=== PATIENT | male | born 1955 | race Caucasian/White ===

== ENCOUNTER 2018-08-04 19:48 | Inpatient (IN) | payer MEDICARE, OTHER ==
[~2018-08-04] VITALS: Ht 180.3 cm; Wt 149.5 kg
[~2018-08-04 19:48] MED LIST: ALLOPURINOL100 MG PO; ALLOPURINOL300 MG PO; ATENOLOL100 MG PO; DESOXIMETASONE15 G3 TOP; DIOVAN HCT 3201 EACH PO; DIOVAN320 MG PO; FLUOROURACIL40 GM TOP; LYRICA100 MG PO; RYBIX ODT50 MG PO; TORSEMIDE10 MG PO; TRILIPIX135 MG PO; ZESTRIL10 MG PO
--- OUTSIDE RECORDS SUMMARY | 2018-08-04 19:51 | XMS REPORT ---
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
--- OUTSIDE RECORDS SUMMARY | 2018-08-04 19:51 | XMS REPORT ---
Author Author Los Baig [facility] eClinical[employer] Address Unknown Phone Unavailable Care Team Providers Care Creative Consultant Name Role Phone Los Baig Unavailable Allergies, Adverse Reactions, Alerts Substance Reaction Event Type N.K.D.A. 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 Medications Medication Code System Code Instructions Start Date End Date Status Dosage Metformin HCl [facility] 29099449002 500 MG Orally Twice a day Active 1 tablet with meals Folic Acid [facility] 22394027852 1 MG Orally Once a day Active 1 tablet Iron [facility] [address]-63 65 MG Orally Active as directed Tylenol Extra Strength [facility] 31786324173 500 MG Orally every 6 hrs Active 2 tablets as needed Humira [facility] 94206368783 40 MG/0.8ML Subcutaneous once every 2wks September 02, 2016 Active 0.8 ml Amlodipine Besylate [facility] 70688021110 5 MG Orally Once a day Active 1 tablet Medrol [facility] 74961874784 4 MG Active TAKE ONE (1) TABLET(S) BY MOUTH IN THE MORNING WITH FOOD OR MILK NEEDED. Desoximetasone [facility] 40221042325 0.25 % Externally Twice a day Active 1 application to affected area Fenofibric Acid [facility] 87027585293 135 MG Orally Once a day Active 1 capsule Valsartan-Hydrochlorothiazide [facility] 89326471399 320-12.5 MG Orally Once a day Active 1 tablet Atenolol [facility] 71555715324 100 MG Orally Once a day Active 1 tablet Vitamin B12 [facility] [address]-01 500 MCG Orally Once a day Active 2 tablets Atorvastatin Calcium [facility] 28899758125 40 MG Orally Once a day Active 1 tablet Allopurinol [facility] 98555189091 300 MG Orally Once a day Active 1 tablet PredniSONE NDC 0 5 MG Orally Once a day Active 1 tab prn Vital Signs Date/Time: Mar 30, 2017 BMI 52.45 Index Weight 345 lbs Height 68 in Temperature 98.1 F Cardiac Monitoring Heart Rate 72 /min Blood Pressure Diastolic 80 mm Hg Blood Pressure Systolic 132 mm Hg Results No Known Results Summary Purpose eClinicalWorks Submission
--- OUTSIDE RECORDS SUMMARY | 2018-08-04 19:51 | XMS REPORT ---
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
--- OUTSIDE RECORDS SUMMARY | 2018-08-04 19:51 | XMS REPORT ---
Author Author Los Baig [facility] eClinicalWorks Address Unknown Phone Unavailable Care Team Providers Care Retarder Operator Name Role Phone Los Baig Unavailable Allergies, Adverse Reactions, Alerts Substance Reaction Event Type N.K.D.A. 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 Medications Medication Code System Code Instructions Start Date End Date Status Dosage Amlodipine Besylate [facility] 42682511077 5 MG Orally Once a day Active 1 tablet Vitamin B12 [facility] [address] 500 MCG Orally Once a day Active 2 tablets Atorvastatin Calcium [facility] 71157269622 80 MG Orally Once a day Active 1/2 tablet Desoximetasone [facility] 06537763020 0.25 % Externally PRN Active 1 application to affected area Spironolactone ND 48661600131 25 MG Orally Active 1 tablet Metoprolol Succinate ND 0 100 MG Orally Active as directed Humira [facility] 95242217699 40 MG/0.8ML Subcutaneous once every 2wks Active 0.8 ml Metformin HCl ND 23988167020 500 MG Orally Once a day Active 1 tablet with meals Allopurinol [facility] 36710024072 300 MG Orally Once a day Active 1 tablet Valsartan-Hydrochlorothiazide [facility] 84749822576 320-25 MG Orally Once a day Active 1 tablet Tylenol Extra Strength [facility] 25362378996 500 MG Orally PRN Active 2 tablets as needed Iron [facility] [address]-57 65 MG Orally Active as directed Gemfibrozil [facility] 13213120705 600 MG Orally Twice a day Active 1 tablet Vital Signs Date/Time: Mar 22, 2018 BMI 50.93 Index Weight 335 lbs Height 68 in Temperature 98.0 F Cardiac Monitoring Heart Rate 68 /min Blood Pressure Diastolic 82 mm Hg Blood Pressure Systolic 130 mm Hg Results No Known Results Summary Purpose eClinicalWorks Submission
--- OUTSIDE RECORDS SUMMARY | 2018-08-04 19:51 | XMS REPORT ---
Author Author Dominik Caraballo Organization e[employer] Address Unknown Phone Unavailable Care Team Providers Care Air Analyst Name Role Phone Dominik Caraballo CP Unavailable Allergies, Adverse Reactions, Alerts Substance Reaction Event Type N.K.D.A. 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 [address]-17 500 MCG Orally Once a day Active 2 tablets Folic Acid [facility] 53254859897 1 MG Orally Once a day Active 1 tablet Fenofibric Acid [facility] 39601936623 135 MG Orally Once a day Active 1 capsule Amlodipine Besylate [facility] 26095666779 5 MG Orally Once a day Active 1 tablet Iron [facility] [address]-12 65 MG Orally Active as directed Humira [facility] 33687613802 40 MG/0.8ML Subcutaneous once every 2wks September 02, 2016 Active 0.8 ml Metformin HCl [facility] 46632576661 500 MG Orally Twice a day Active 1 tablet with meals Atorvastatin Calcium [facility] 91326698037 40 MG Orally Once a day Active 1 tablet Valsartan-Hydrochlorothiazide [facility] 40119168756 320-12.5 MG Orally Once a day Active 1 tablet Atenolol [facility] 37859898243 100 MG Orally Once a day Active 1 tablet Allopurinol [facility] 01210846184 300 MG Orally Once a day Active 1 tablet Desoximetasone [facility] 86566636630 0.25 % Externally Twice a day Active 1 application to affected area Tylenol Extra Strength [facility] 17670742379 500 MG Orally every 6 hrs Active 2 tablets as needed Vital Signs Date/Time: August 04, 2017 BMI 50.61 Index Weight 332.9 lbs Height 68 in Temperature 98.1 F Cardiac Monitoring Heart Rate 82 /min Blood Pressure Diastolic 84 mm Hg Blood Pressure Systolic 142 mm Hg Results No Known Results Summary Purpose eClinicalWorks Submission
--- OUTSIDE RECORDS SUMMARY | 2018-08-04 19:51 | XMS REPORT ---
Author Author Los Baig [facility] eClinicalWorks Address Unknown Phone Unavailable Care Team Providers Care Breastfeeding Educator Name Role Phone Los Baig Unavailable Allergies, Adverse Reactions, Alerts Substance Reaction Event Type N.K.D.A. 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 Assessment Long-term use of high-risk medication Z79.899 Active Problem Chronic kidney disease N18.9 Active Problem Psoriasis L40.9 Active Medications Medication Code System Code Instructions Start Date End Date Status Dosage Gemfibrozil [facility] 86061253384 600 MG Orally Twice a day Active 1 tablet Valsartan-Hydrochlorothiazide ND 99990998123 320-12.5 MG Orally Once a day Active 1 tablet Amlodipine Besylate [place] 60472309550 5 MG Orally Once a day Active 1 tablet Allopurinol ND 51734651862 300 MG Orally Once a day Active 1 tablet Desoximetasone [facility] 59014022220 0.25 % Externally PRN Active 1 application to affected area Metoprolol Succinate NDC 0 100 MG Orally Active as directed Tylenol Extra Strength ND 92168712579 500 MG Orally PRN Active 2 [place] [address]-71 65 MG Orally Active as directed Atorvastatin Calcium ND 02905520873 80 MG Orally Once a day Active 1/2 tablet Metformin HCl ND 14499671387 500 MG Orally Once a day Active 1 tablet with meals Vitamin B12 [facility] [address] 500 MCG Orally Once a day Active 2 tablets Humira ND 31264853593 40 MG/0.8ML Subcutaneous once every 2wks Active 0.8 ml Vital Signs Date/Time: November 21, 2017 BMI 51.84 Index Weight 341 lbs Height 68 in Temperature 98.6 F Cardiac Monitoring Heart Rate 60 /min Blood Pressure Diastolic 98 mm Hg Blood Pressure Systolic 140 mm Hg Results Name Result Date Reference Range Unit Abnormality Flag COMPREHENSIVE METABOLIC PANEL W/EGFR ----CALCIUM 9.3 39806444 8.6-10.3 mg/dL N ----CARBON DIOXIDE 23 64527750 20-31 mmol/L N ----ALT 19 31265738 9-46 U/L N ----CREATININE 1.37 02833573 0.70-1.25 mg/dL H ----AST 35 80366223 10-35 U/L N ----eGFR NON-AFR. CYMRO 55 28304266 > OR=60 mL/min/1.73m2 L ----ALKALINE PHOSPHATASE 41 90201400 40-115 U/L N ----eGFR 64 80312398 > OR=60 mL/min/1.73m2 N ----BILIRUBIN, TOTAL 0.5 56262076 0.2-1.2 mg/dL N ----BUN/CREATININE RATIO 20 14393865 6-22 (calc) N ----ALBUMIN/GLOBULIN RATIO 1.2 70039386 1.0-2.5 (calc) N ----SODIUM 137 44392498 135-146 mmol/L N ----GLOBULIN 3.4 43523188 1.9-3.7 g/dL (calc) N ----POTASSIUM 4.4 60681155 3.5-5.3 mmol/L N ----GLUCOSE 92 39672199 65-139 mg/dL N ----CHLORIDE 103 60114895 98-110 mmol/L N ----ALBUMIN 4.1 55804753 3.6-5.1 g/dL N ----UREA NITROGEN (BUN) 28 34532258 7-25 mg/dL H ----PROTEIN, TOTAL 7.5 73432219 6.1-8.1 g/dL N SED RATE BY MODIFIED WESTERGREN ----SED RATE BY MODIFIED WESTERGREN 28 99898917 < OR=20 mm/h H C-REACTIVE PROTEIN ----C-REACTIVE PROTEIN 4.2 66109942 <8.0 mg/L N CBC (INCLUDES DIFF/PLT) ----MCHC 32.6 85080676 32.0-36.0 g/dL N ----MCH 30.5 56734600 27.0-33.0 pg N ----PLATELET COUNT 195 71253562 140-400 Thousand/uL N ----RDW 13.6 56202050 11.0-15.0 % N ----BASOPHILS 1.2 51866410 % N ----ABSOLUTE NEUTROPHILS 4089 58604953 0317-3852 cells/uL N ----ABSOLUTE LYMPHOCYTES 2687 17243523 850-3900 cells/uL N ----MPV 11.2 55581462 7.5-12.5 fL N ----ABSOLUTE BASOPHILS 92 66190144 0-200 cells/uL N ----HEMATOCRIT 43.6 46069420 38.5-50.0 % N ----NEUTROPHILS 53.1 59216772 % N ----MCV 93.8 93034290 80.0-100.0 fL N ----RED BLOOD CELL COUNT 4.65 25582707 4.20-5.80 Million/uL N ----ABSOLUTE MONOCYTES 539 24610165 200-950 cells/uL N ----ABSOLUTE EOSINOPHILS 293 80379997 15-500 cells/uL N ----HEMOGLOBIN 14.2 68340090 13.2-17.1 g/dL N ----EOSINOPHILS 3.8 32201617 % N ----WHITE BLOOD CELL COUNT 7.7 37646648 3.8-10.8 Thousand/uL N ----LYMPHOCYTES 34.9 99747504 % N ----MONOCYTES 7.0 64753252 % N Summary Purpose eClinicalWorks Submission
--- OUTSIDE RECORDS SUMMARY | 2018-08-04 19:51 | XMS REPORT | Continuity of Care Document ---
Author Author [facility] Address Unknown Phone Unavailable Problems Problem Status Onset Date Classification Date Reported Comments Source Chronic kidney disease Active Problem 07/04/2018 Yg Grandeer Psoriasis Active Problem 07/04/2018 Yg Clifton Psoriatic arthritis mutilans Active Problem 07/04/2018 Yg Clifton Long-term use of high-risk medication Active Problem 07/04/2018 Yg Clifton Gout Active Problem 07/04/2018 Yg Clifton Back pain Active Problem 07/04/2018 Yg Clifton Medications Medication Details Route Status Patient Instructions Ordering Provider Order Date Source Humira 0.8 ml Subcutaneous Active 40 MG/0.8ML Subcutaneous once every 2wks Jovanni 07/03/2018 Yg Clifton Humira 0.8 ml Subcutaneous Active 40 MG/0.8ML [facility]02/2016 Yg Clifton Metformin HCl 1 tablet with meals Orally Active 500 MG Orally Once a day Jovanni Yg Clifton Folic Acid 1 tablet Orally Active 1 MG Orally Once a day [facility] gY Clifton Iron as directed Orally Active 65 MG Orally Jovanni Yg Clifton Tylenol Extra Strength 2 tablets as needed Orally Active 500 MG Orally PRN Jovanni Yg Clifton Amlodipine Besylate 1 tablet Orally Active 5 MG Orally Once a day [facility] Yg Clifton Medrol TAKE ONE (1) TABLET(S) BY MOUTH IN THE MORNING WITH FOOD OR MILK NEEDED. NA Active 4 MG Jovanni Yg Clifton Desoximetasone 1 application to affected area Externally Active 0.25 % Externally PRN Jovanni Yg Clifton Fenofibric Acid 1 capsule Orally Active 135 MG Orally Once a day [facility] Yg Clifton Valsartan-Hydrochlorothiazide 1 tablet Orally Active 320-25 MG Orally Once a day [facility] Yg Clifton Atenolol 1 tablet Orally Active 100 MG Orally Once a day [facility] Yg Clifton Vitamin B12 2 tablets Orally Active 500 MCG Orally Once a day [facility] Yg Clifton Atorvastatin Calcium 1/2 tablet Orally Active 80 MG Orally Once a day Jovanni Yg Clifton Allopurinol 1 tablet Orally Active 300 MG Orally Once a day Jovanni Yg Clifton PredniSONE 1 tab prn Orally Active 5 MG Orally Once a day J[facility] Yg Clifton Vitamin B12 2 tablets Orally Active 500 MCG Orally Once a day [facility] Yg Clifton Spironolactone 1 tablet Orally Active 25 MG Orally [facility] Yg Clifton Metoprolol Succinate as directed Orally Active 100 MG Orally J[facility] Yg Clifton Humira 0.8 ml Subcutaneous Active 40 MG/0.8ML Subcutaneous once every 2wks Jovanni Yg Clifton Gemfibrozil 1 tablet Orally Active 600 MG Orally Twice a day Jovanni Yggriselda Clifton Allergies, Adverse Reactions, Alerts Substance Category Reaction Severity Reaction type Status Date Reported Comments Source N.K.D.A. Adverse Reaction Info Not Available Adverse Reaction Active 03/22/2018 Yg Clifton Immunizations Immunization Date Given Site Status Last Updated Comments Source Results Order Name Results Value Reference Range Date Interpretation Comments Source Vital Signs Vital Sign Value Date Comments Source Weight 335 03/22/2018 Yg Clifton Height 68 03/22/2018 Yg Clifton Temperature Oral (F) 98.0 F 03/22/2018 Yg Clifton Heart Rate 68 03/22/2018 Yg Clifton Diastolic (mm Hg) 82 03/22/2018 Yg Clifton Systolic (mm Hg) 130 03/22/2018 Yg Clifton Weight 341 11/21/2017 Yg Clifton Height 68 11/21/2017 Yg Clifton Temperature Oral (F) 98.6 F 11/21/2017 Yg Clifton Heart Rate 60 11/21/2017 Yg Clifton Diastolic (mm Hg) 98 11/21/2017 Yg Clifton Systolic (mm Hg) 140 11/21/2017 Yg Clifton Weight 332.9 08/04/2017 Yg Clifton Height 68 08/04/2017 Yg Clifton Temperature Oral (F) 98.1 F 08/04/2017 Yg Clifton Heart Rate 82 08/04/2017 Yg Clifton Diastolic (mm Hg) 84 08/04/2017 Yg Clifton Systolic (mm Hg) 142 08/04/2017 Yg Clifton Weight 345 03/30/2017 Yg Clifton Height 68 03/30/2017 Yg Clifton Temperature Oral (F) 98.1 F 03/30/2017 Yg Clifton Heart Rate 72 03/30/2017 Yg Clifton Diastolic (mm Hg) 80 03/30/2017 Yg Clifton Systolic (mm Hg) 132 03/30/2017 Yg Clifton Encounters Location Location Details Encounter Type Encounter Number Reason For Visit Attending Provider ADM Date DC Date Status Source Procedures Procedure Code Date Perfomer Comments Source
--- OUTSIDE RECORDS SUMMARY | 2018-08-04 19:51 | XMS REPORT ---
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
[2018-08-04] MEDS ORDERED: VANCOMYCIN 1GM/NS 250 ML 250 ML IV SCH (20:45)
[2018-08-04 21:57] LABS: BASOPHILS # (AUTO) 0.1 (0.0-0.1); BASOPHILS % 0.4 % (0.0-1.0); EOSINOPHILS # (AUTO) 0.1 (0.0-0.4); EOSINOPHILS % 0.6 % (0.0-6.0); HEMOGLOBIN 12.3 g/dL (14.0-18.0); LYMPHOCYTES # (AUTO) 1.7 (1.0-3.2); LYMPHOCYTES % 11.9 % (18.0-39.1); MEAN CORPUSCULAR HEMOGLOBIN 30.5 pg (28-32); MEAN CORPUSCULAR HGB CONC 30.8 g/dL (31-35); MEAN CORPUSCULAR VOLUME 99.3 fL (81-99); MONOCYTES # (AUTO) 0.9 (0.2-0.8); MONOCYTES % 6.8 % (4.4-11.3); NEUTROPHILS % 78.7 % (38.7-80.0); PLATELET COUNT 298 x10e3/uL (140-360); RED BLOOD COUNT 4.03 x10e6/uL (4.3-5.7); RED CELL DISTRIBUTION WIDTH 14.6 % (11.7-14.4)
[2018-08-04] MEDS ORDERED: PIPER-TAZ 3.375 GM 50 ML IV SCH (22:00)
[2018-08-04 22:17] LABS: ALBUMIN 2.8 g/dL (3.5-5.0); ALBUMIN/GLOBULIN RATIO 0.4 (0.8-2.0); ANION GAP 15.8 mmol/L (8-16); CALCIUM 10.2 mg/dL (8.4-10.2); CREATININE, SERUM 2.34 mg/dL (0.72-1.25)
--- NOTE | 2018-08-04 22:17 | Diagnostic Imaging Report ---
EXAMINATION: CHEST SINGLE (PORTABLE) COMPARISON: Chest x-ray 08/19/2013 INDICATION: ^COUGH ^[id number] ^2121 ^Y DISCUSSION: Frontal view of the chest obtained at 2105 hours. HEART AND MEDIASTINUM: Top normal in size and stable. Mild and stable aortic ectasia LINES: None. LUNGS: The lungs are well inflated and clear. No pneumonia or pulmonary edema. PLEURA: No pleural effusion or pneumothorax. BONES AND SOFT TISSUES: Degenerative changes of the thoracic spine. No focal osseous lesion. The soft tissues are normal. IMPRESSION: No acute cardiopulmonary disease. Signed by: Dr. Gary Galvez MD on 08/04/2018 10:13 PM
[2018-08-04 22:25] LABS: POTASSIUM 5.8 mmol/L (3.5-5.1)
[2018-08-04 22:56] LABS: CLARITY,URINE CLEAR (CLEAR); COLOR,URINE YELLOW (YELLOW)
[2018-08-04 22:57] LABS: BILIRUBIN,URINE NEGATIVE (NEGATIVE); KETONES,URINE NEGATIVE (NEGATIVE); LEUKOCYTE ESTERASE ,URINE NEGATIVE (NEGATIVE); NITRITE,URINE NEGATIVE (NEGATIVE); PROTEIN,URINE DIPSTICK 1+ (NEGATIVE); URINE UROBILINOGEN 0.2 mg/dL (0.2 - 1)
[2018-08-04 23:39] LABS: BACTERIA,URINE FEW /HPF; EPITHELIAL CELLS,URINE RARE /LPF; RBC,URINE 0-5 /HPF (0-5); WBC,URINE (MAN) 0-5 /HPF (0-5)
[2018-08-04 23:43] LABS: ALBUMIN 2.7 g/dL (3.5-5.0); ALBUMIN/GLOBULIN RATIO 0.4 (0.8-2.0); CREATININE, SERUM 2.36 mg/dL (0.72-1.25)
[2018-08-04] MEDS ORDERED: CALCIUM CHLORIDE 10% 1.36 MEQ/ML 10ML SYR IV STA (23:52)
[2018-08-04] MEDS ORDERED: SODIUM BICARBONATE 8.4% INJ 50 ML SYR IV STA (23:52)
[2018-08-04] MEDS ORDERED: DEXTROSE 50% SYRINGE 50 ML IV STA (23:52)
[2018-08-05] VITALS (9 sets, daily range): BP systolic 102–128; BP diastolic 57–78
[2018-08-05] MEDS ORDERED: SODIUM CHLORIDE FLUSH 10 ML SYR INJ PRN
[2018-08-05] MEDS ORDERED: MORPHINE SULFATE 2 MG/ML SYR 1ML IV PRN
[2018-08-05] MEDS ORDERED: INSULIN REGULAR, HUMAN 100 UNIT/1 ML 3ML VIAL IV ONE
[2018-08-05] MEDS ORDERED: SODIUM CHLORIDE 0.9% 100 ML ONE (00:09)
--- OUTSIDE RECORDS SUMMARY | 2018-08-05 00:09 | XMS REPORT ---
[facility] Address Unknown Phone Unavailable Care Team Providers Care Sheet Metal Assembler And Riveter Name Role Phone Tamar GRAVES Unavailable Unavailable Problems This patient has no known problems. Allergies, Adverse Reactions, Alerts This patient has no known allergies or adverse reactions. Medications This patient has no known medications. Results Test Description Test Time Test Comments Text Results Atomic Results Result Comments CHEST SINGLE (PORTABLE) 2018-08-04 22:12:00 [facility] [address] [address] Patient Name: JETHRO TORO MR #: [id number] : 1955 Age/Sex: 62/M Req #: [id number] Adm Physician: Ordered by: ANTONIA GRAVES MD Report #: [id number] Location: ER Room/Bed: Procedure: [id number] DX/CHEST SINGLE (PORTABLE) Exam Date: 08/04/18 Exam Time: 2121 REPORT STATUS: Signed EXAMINATION: CHEST SINGLE (PORTABLE) COMPARISON: Chest x-ray 08/19/2013 INDICATION: COUGH [id number] Y DISCUSSION: Frontal view of the chest obtained at 2105 hours. HEART AND MEDIASTINUM: Top normal in size and stable. Mild and stable aortic ectasia LINES: None. LUNGS: The lungs are well inflated and clear. No pneumonia or pulmonary edema. PLEURA: No pleural effusion or pneumothorax. BONES AND SOFT TISSUES: Degenerative changes of the thoracic spine. No focal osseous lesion. The soft tissues are normal. IMPRESSION: No acute cardiopulmonary disease. Signed by: Dr. Jimenez Galvez MD on 08/04/2018 10:13 PM Dictated By: JIMENEZ GALVEZ MD 12 Transcribed By: SELENA on 08/04/182212 COPY TO: ANTONIA GRAVES MD
--- NOTE | 2018-08-05 00:15 | NUR ---
Received report from Krysten, ER nurse. Patient came in with no pain or distress. He came via stretcher and accompanied by his . Call light within reach.
[2018-08-05] MEDS ORDERED: MORPHINE SULFATE INJ 4 MG/ML INJ 1ML ONE (00:33)
[2018-08-05] MEDS: ONDANSETRON HCL INJ 2MG/ML 2ML 2 MG/ML VIAL IV PRN ×2 (00:40→22:27)
[2018-08-05] MEDS ORDERED: AMLODIPINE BESYL5 MG PO (02:25)
[2018-08-05] MEDS ORDERED: METFORMIN HCL500 MG PO (02:25)
[2018-08-05] MEDS ORDERED: VITAMIN B-121000 MCG PO (02:25)
[2018-08-05] MEDS ORDERED: SPIRONOLACTONE25 MG PO (02:25)
[2018-08-05] MEDS ORDERED: CALCIUM + VITA1 EACH PO (02:25)
[2018-08-05] MEDS ORDERED: FERROUS SULFAT325 M1 PEG (02:25)
[2018-08-05] MEDS ORDERED: METOPROLOL SUCC50 MG PO (02:25)
[2018-08-05] MEDS ORDERED: GEMFIBROZIL600 MG PO (02:25)
[2018-08-05] MEDS ORDERED: HUMIRA40 MG/0.1 INJ (02:25)
[2018-08-05] MEDS ORDERED: VITAMIN B12-FO1 EACH PO (02:25)
[2018-08-05] MEDS ORDERED: ATORVASTATIN CA20 MG PO (02:25)
[2018-08-05] MEDS ORDERED: SODIUM CHLORIDE 0.9% 250ML 250 ML ONE (06:34)
[2018-08-05] MEDS: PIPERACILLIN/TAZO 2.25 GM 50 ML IV SCH ×3 (06:39→22:11)
--- NOTE | 2018-08-05 07:20 | NUR ---
Report given to oncoming nurse. Patient in bed and bed alarm on. Call light within reach.
[2018-08-05] MEDS: INSULIN REGULAR, HUMAN 100 UNIT/1 ML 3ML VIAL SQ SCH ×4 (07:30→21:00)
[2018-08-05 07:50] LABS: BASOPHILS # (AUTO) 0.1 (0.0-0.1); BASOPHILS % 0.4 % (0.0-1.0); EOSINOPHILS # (AUTO) 0.1 (0.0-0.4); EOSINOPHILS % 0.4 % (0.0-6.0); HEMATOCRIT 35.4 % (38.2-49.6); HEMOGLOBIN 11.1 g/dL (14.0-18.0); LYMPHOCYTES # (AUTO) 2.7 (1.0-3.2); LYMPHOCYTES % 18.7 % (18.0-39.1); MEAN CORPUSCULAR HGB CONC 31.4 g/dL (31-35); MEAN CORPUSCULAR VOLUME 98.9 fL (81-99); MONOCYTES # (AUTO) 1.1 (0.2-0.8); MONOCYTES % 7.8 % (4.4-11.3); NEUTROPHILS % 70.5 % (38.7-80.0); PLATELET COUNT 257 x10e3/uL (140-360); RED BLOOD COUNT 3.58 x10e6/uL (4.3-5.7); RED CELL DISTRIBUTION WIDTH 14.8 % (11.7-14.4)
[2018-08-05 08:15] LABS: ALBUMIN 2.5 g/dL (3.5-5.0); ALBUMIN/GLOBULIN RATIO 0.4 (0.8-2.0); ANION GAP 15.6 mmol/L (8-16); CALCIUM 9.9 mg/dL (8.4-10.2); CREATININE, SERUM 2.46 mg/dL (0.72-1.25); POTASSIUM 5.6 mmol/L (3.5-5.1)
[2018-08-05 08:45] LABS: LYMPHOCYTES % (MANUAL) 24 % (19-48); MONOCYTES % (MANUAL) 11 % (3.4-9.0); NEUTROPHILS % (MANUAL) 65 % (40-74); PLATELET ESTIMATE ADEQUATE; PLATELET MORPHOLOGY COMMENT NORMAL; RBC MORPHOLOGY COMMENT NORMAL
[2018-08-05] MEDS ORDERED: VANCOMYCIN 500MG/NS 0.9% 100ML 100 ML IV SCH (09:00)
[2018-08-05] MEDS: MORPHINE SULFATE INJ 4 MG/ML INJ 1ML IV PRN ×2 (09:21→22:28)
[2018-08-05] MEDS ORDERED: ACETAMINOPHEN 325 MG TAB PO PRN (10:30)
[2018-08-05] MEDS ORDERED: DEXTROSE 50% SYRINGE 50 ML IV PRN ×2 (10:45)
[2018-08-05] MEDS ORDERED: SOD POLYSTYRENE SULFONATE SUSP 15 GM/60 ML BTL PO ONE ×2 (11:00)
[2018-08-05] MEDS ORDERED: FUROSEMIDE INJ 10 MG/ML 4 ML VIAL IV ONE (11:00)
[2018-08-05] MEDS: SODIUM BICARBONATE 650 MG TAB PO SCH ×2 (11:49→17:16)
[2018-08-05] MEDS: SODIUM CHLORIDE 0.9% 1000ML 1,000 ML IV SCH (11:49)
[2018-08-05] MEDS: METOPROLOL SUCCINATE 50 MG TAB XL PO SCH (11:50)
[2018-08-05] MEDS ORDERED: VANCOMYCIN HCL 1.5 GM in SODIUM CHLORIDE 0.9% 250ML 300 ML IV SCH (15:30)
[2018-08-05] MEDS: GEMFIBROZIL 600 MG TAB PO SCH (17:16)
[2018-08-05] MEDS: HYDROCODONE/APAP 5MG-325MG TAB PO PRN (17:18)
[2018-08-05 17:38] LABS: CALCIUM 9.6 mg/dL (8.4-10.2); CREATININE, SERUM 2.49 mg/dL (0.72-1.25)
--- NOTE | 2018-08-05 18:38 | History and Physical ---
CHIEF COMPLAINT: Left upper extremity swelling and redness. HISTORY OF PRESENT ILLNESS: This is a 62-year-old male, morbidly obese with diet-controlled type 2 diabetes, hypertension, morbid obesity, CKD stage 4-5 for which he follows up with Dr. Clark, Nephrology, comes into the ED with left upper extremity swelling, redness, ongoing since Tuesday of this week. The patient initially reports that it came on left side of his face, radiated into his left ear, but then that resolved and then he began to have this left upper extremity swelling and redness with mild pain that began on Tuesday. The patient denies any discharge. Denies any trauma to the left forearm or arm. He reports that he was scratching insignificantly leading to his increased redness. The patient also reports seeing a radiochemical technician, Dr. Clark, for his underlying CKD and he does have some mild hyperkalemia on examination given some medical management. The patient is seen and evaluated at bedside on the medical floor, currently doing well with no other issues. REVIEW OF SYSTEMS: Pertinent positives: Left upper extremity swelling with erythema and cellulitis. Pertinent negatives: Denies any chest pain, palpitation, nausea, vomiting, diarrhea, dysuria, frequency, urgency, lightheadedness, dizziness, abdominal pain, headaches, shortness of breath, cough, congestion, fever, or any other complaints. Rest of the 14-point review of systems have been reviewed with the patient and are negative. ALLERGIES: NO KNOWN DRUG ALLERGIES. HOME MEDICATIONS: He is on allopurinol 300 mg daily, amlodipine 5 mg daily and Lipitor 20 mg daily. Vitamin B12 500 mcg daily, iron tablets 325 mg daily, gemfibrozil 600 mg p.o. b.i.d., metoprolol ER 100 mg daily. He is also on spironolactone and metformin and atenolol. PAST MEDICAL HISTORY: CKD stage 4-5, morbid obesity, diet-controlled diabetes, hypertension, hyperuricemia, hyperlipidemia. PAST SURGICAL HISTORY: None. FAMILY HISTORY: Hypertension and diabetes. SOCIAL HISTORY: No drugs or alcohol. Does not smoke. He has good support. He is . PHYSICAL EXAMINATION: VITAL SIGNS: Temperature 98.7, pulse 80, respiratory rate is 20, blood pressure 92% on room air. GENERAL: Not in acute distress, alert and oriented x3, cooperative on examination. HEENT: Head is normocephalic, atraumatic. Eyes, pupils are equal, round, and reactive to light bilaterally. Extraocular movements are intact bilaterally. No evidence of erythema or exudate in the posterior pharynx. Has poor dentition. NECK: Supple. Full range of motion felt. PULMONARY: Clear to auscultation bilaterally. No wheezing, no rales, no rhonchi, no crackles appreciated. CARDIOVASCULAR: Positive S1, S2. No murmurs or gallop appreciated. ABDOMEN: Soft, nondistended, nontender to palpation. Bowel sounds are present. MUSCULOSKELETAL: Strength is 5/5 throughout. No evidence of NEUROLOGIC: Cranial nerves II through XII are grossly intact. good capillary refill. PSYCHIATRIC: Normal affect and mood. EXTREMITIES: No edema. Good range of motion throughout. LAB FINDINGS: Show white count is 14, hemoglobin 11.1, hematocrit is 35.4, platelets are 257. Chemistry; sodium 132, potassium is , chloride 108, bicarb 14, anion gap is 18, BUN is 66, creatinine is 2.46, glucose 96. LFTs were normal. Albumin is 2.5. Urinalysis negative. Microbiology, blood cultures are pending. IMAGING STUDIES: Chest x-ray is negative. IMPRESSION: 1. Left upper extremity cellulitis. 2. Chronic kidney disease stage 4-5. 3. Hyperkalemia. 4. Diet-controlled diabetes. 5. Hypertension. 6. Morbid obesity. PLAN: At this time, for his left upper extremity cellulitis, ID will be consulted. The patient is on IV vancomycin and Zosyn. We will give vancomycin random level before the next dose due to the fact that the patient has underlying renal failure. Blood cultures are pending. Get a venous Doppler of the left upper extremity. In relation to his renal failure, Nephrology was consulted. Kayexalate 30 g p.o. x1 ordered. He will also get 80 of Lasix IV x1. IV fluids. Repeat chemistry at 1700 hours. Put on insulin sliding scale and monitor his glucose levels closely. Hemoglobin A1c. Repeat same home medications at home. Put on heparin for DVT prophylaxis. He is on a renal diet. I have discussed with him about holding his metformin on discharge as it is very dangerous considering the fact that he has renal failure and I discussed this with the at bedside as well. They seemed to have agreed this kind of fear and verbalized understanding. MD NUNO Parekh/YOEL /[id number]
--- NOTE | 2018-08-05 18:59 | NUR ---
CALLED DR. MAYBERRY WITH BMP RESULTS NO NEW ORDERS RECEIVED.
[2018-08-05] MEDS: ATORVASTATIN 40 MG TAB PO SCH (22:00)
[2018-08-05] MEDS: HEPARIN SOD (PORCINE) 5,000 UNIT/ML VIAL SC SCH (22:00)
--- NOTE | 2018-08-05 22:28 | NUR ---
PATIENT C/O PAIN TO THE LEFT ARM WITH PAIN SCORE #7, MEDICATED WITH MORPHINE AND ZOFRAN ORDERED. THE ARM IS ELEVATED ON PILLOW, CALL LIGHT AND URINAL WITHIN EASY REACH, PATIENT INSTRUCTED TO CALL FOR ASSISTANCE NEEDED.
--- NOTE | 2018-08-05 23:10 | Consultation ---
DATE OF CONSULTATION: Consult Note REASON FOR CONSULTATION: Cellulitis of the left upper extremity. HISTORY OF PRESENT ILLNESS: This patient is a very pleasant 62-year-old white male with history of obesity, hypertension. A week or so ago, he had sinus infection. He had some nasal discharge. The patient then had some redness and swelling around his nose. Soon thereafter, few days later, started to have redness and swelling around his left arm, started to spread to his arm and now he is having redness and swelling involving his whole left upper extremity. The patient came to the hospital. The patient told me he did take some antibiotics for the sinus infection. The patient came here. He was admitted, started on vancomycin and Zosyn. I am asked to see him. The patient is currently lying in bed comfortably. PAST MEDICAL HISTORY: Hypertension. PAST SURGICAL HISTORY: Back surgery and knee surgery. He is on disability because of that. ALLERGIES: AKA. SOCIAL HISTORY: There is no smoking, drug abuse, or alcohol abuse. FAMILY HISTORY: Otherwise, hypertension. REVIEW OF SYSTEMS: HEENT: Negative. PULMONARY: Negative. CARDIAC: Negative. : Negative. GI: Negative. PHYSICAL EXAMINATION: GENERAL: Currently alert, oriented, does not seem to be in acute distress. VITAL SIGNS: His vitals are stable. Currently afebrile. HEENT: Not icteric. Normocephalic. NECK: Supple. No JVD. No lymphadenopathy. No thyromegaly. CHEST: Clear bilateral. HEART: S1 and S2, normal. ABDOMEN: Soft. SKIN: Left upper extremity has erythema and edema. Erythema is from the shoulder all the way down to below the elbow. IMPRESSION: 1. Cellulitis of the left upper extremity, relieved with vancomycin. Concern about his kidneys. The patient does have acute, perhaps chronic kidney disease. We will adjust his vancomycin. We will adjust to 1.5 q.24, obtain trough at the 3rd dose. We will check CBC. We will check chem panel. 2. Hyperkalemia. 3. Obesity. We will follow. MD SANDRA Rosen/YOEL /[id number]
[2018-08-06] VITALS (7 sets, daily range): BP systolic 103–132; BP diastolic 58–78
[2018-08-06] MEDS: SODIUM CHLORIDE 0.9% 1000ML 1,000 ML IV SCH ×2 (02:20→16:44)
--- NOTE | 2018-08-06 02:25 | NUR ---
PATIENT IS SOUNDLY ASLEEP, NO RESPIRATORY DISTRESS OBSERVED, HE'S EASY TO AROUSE. CALL LIGHT AND URINAL WITHIN EASY REACH.
[2018-08-06] MEDS: PIPERACILLIN/TAZO 2.25 GM 50 ML IV SCH ×3 (06:15→23:21)
[2018-08-06] MEDS: INSULIN REGULAR, HUMAN 100 UNIT/1 ML 3ML VIAL SQ SCH ×4 (07:30→21:00)
[2018-08-06 08:27] LABS: BASOPHILS # (AUTO) 0.1 (0.0-0.1); BASOPHILS % 0.8 % (0.0-1.0); EOSINOPHILS # (AUTO) 0.2 (0.0-0.4); EOSINOPHILS % 2.6 % (0.0-6.0); HEMATOCRIT 36.8 % (38.2-49.6); LYMPHOCYTES # (AUTO) 2.2 (1.0-3.2); LYMPHOCYTES % 25.6 % (18.0-39.1); MEAN CORPUSCULAR HEMOGLOBIN 30.3 pg (28-32); MEAN CORPUSCULAR HGB CONC 29.9 g/dL (31-35); MEAN CORPUSCULAR VOLUME 101.4 fL (81-99); MONOCYTES # (AUTO) 0.7 (0.2-0.8); MONOCYTES % 7.5 % (4.4-11.3); NEUTROPHILS # (AUTO) 5.3 (2.1-6.9); NEUTROPHILS % 60.5 % (38.7-80.0); PLATELET COUNT 238 x10e3/uL (140-360); RED BLOOD COUNT 3.63 x10e6/uL (4.3-5.7); RED CELL DISTRIBUTION WIDTH 14.7 % (11.7-14.4)
[2018-08-06 08:58] LABS: ANION GAP 15.4 mmol/L (8-16); CALCIUM 9.2 mg/dL (8.4-10.2); CREATININE, SERUM 2.45 mg/dL (0.72-1.25); POTASSIUM 4.4 mmol/L (3.5-5.1)
[2018-08-06] MEDS: AMLODIPINE BESYLATE 5 MG TAB PO SCH (09:00)
[2018-08-06] MEDS: METOPROLOL SUCCINATE 50 MG TAB XL PO SCH (09:00)
[2018-08-06] MEDS: FERROUS SULFATE 300 MG/5 ML LIQD PEG SCH (09:06)
[2018-08-06] MEDS: HEPARIN SOD (PORCINE) 5,000 UNIT/ML VIAL SC SCH ×2 (09:06→21:01)
[2018-08-06] MEDS: GEMFIBROZIL 600 MG TAB PO SCH ×2 (09:06→16:44)
[2018-08-06] MEDS: SODIUM BICARBONATE 650 MG TAB PO SCH ×2 (09:06→16:44)
[2018-08-06] MEDS: ALLOPURINOL 300 MG TAB PO SCH (09:07)
[2018-08-06] MEDS: CYANOCOBALAMIN 1,000 MCG TAB PO SCH (09:07)
[2018-08-06] MEDS: HYDROCODONE/APAP 5MG-325MG TAB PO PRN ×2 (09:12→20:59)
[2018-08-06] MEDS: VANCOMYCIN 1GM/NS 250 ML 250 ML IV SCH (09:32)
[2018-08-06 10:02] LABS: BAND NEUTROPHILS % (MANUAL) 3 %; EOSINOPHILS % (MANUAL) 3 % (0-7); LYMPHOCYTES % (MANUAL) 21 % (19-48); MONOCYTES % (MANUAL) 12 % (3.4-9.0); NEUTROPHILS % (MANUAL) 61 % (40-74); PLATELET ESTIMATE ADEQUATE; PLATELET MORPHOLOGY COMMENT NORMAL; RBC MORPHOLOGY COMMENT NORMAL
--- NOTE | 2018-08-06 13:20 | NUR ---
Patient lives: Lives with Admit/Transfer: Admit POA/Emergency contact: Lenny Read [phone] Current/Previous Home Health: No home hx PCP/Follow-up Care: Andrea Irizarry MD Current/Previous DME: Electric wheelchair and can Other Services: None Employment Status: Patient is retired , disability Areas of Concerns: Referral Needs: Unknown at this time Education Needs: IMM/GUERRERO given and signed (if applicable): n/A Goal for discharge:
[2018-08-06] MEDS: ONDANSETRON HCL INJ 2MG/ML 2ML 2 MG/ML VIAL IV PRN (13:29)
[2018-08-06] MEDS: MORPHINE SULFATE INJ 4 MG/ML INJ 1ML IV PRN (13:29)
--- NOTE | 2018-08-06 13:37 | Progress Note ---
DATE: 08/06/2018 Medicine Progress Note SUBJECTIVE: The patient's left upper extremity is much improved. Venous Doppler was found to be negative, preliminaries for DVT. He reports very minimal pain at this time. PHYSICAL EXAMINATION: VITAL SIGNS: Temperature respiratory rate 20, blood pressure of , pulse ox 94% on room air. . GENERAL: Not in acute distress. Alert and oriented x3. Cooperative on examination. HEENT: Head is normocephalic and atraumatic. Eyes, pupils equal and reactive to light bilaterally. Extraocular movements are intact bilaterally. NECK: Supple. Good range of motion throughout. No evidence of erythema or exudates in the posterior pharynx. Has poor dentition. PULMONARY: Clear to auscultation bilaterally. No wheezing, no rales, no rhonchi, no crackles appreciated. CARDIOVASCULAR: Positive S1 and S2. No murmurs, rubs, or gallops appreciated. ABDOMEN: Soft, nondistended, and nontender to palpation. Bowel sounds are present. MUSCULOSKELETAL: Strength is 5/5 throughout . PSYCHIATRIC: Normal affect and mood. EXTREMITIES: No edema. Good range of motion throughout. Left upper extremity has some significant erythema, swelling but improved cellulitis with no issues. LABORATORY STUDIES: Lab findings show white count 8.7, hemoglobin 11, hematocrit 37, and platelets 238. Chemistry: Sodium 133, potassium , chloride 105, bicarb 17, BUN is 68, creatinine is 2.45. Microbiology, no growth. IMAGING STUDIES: Venous Doppler of upper extremity was found to be negative for DVT. IMPRESSION: 1. Left upper extremity cellulitis, now improving. 2. Chronic kidney disease stage 4-5. 3. Mild hyperkalemia, resolved. 4. Diet-controlled diabetes. 5. Hypertension. 6. Morbid obesity. PLAN: At this time, continue with IV antibiotics for left upper extremity cellulitis, which has improved tremendously. Venous Doppler was found to be preliminary, no DVT. ID is following very closely. stable. Nephrology is evaluating and managing his renal disease. Continue with renal diet . Monitor his electrolytes in the a.m. labs. Otherwise, . MD NUNO Parekh/THONGL /[id number]
--- NOTE | 2018-08-06 19:29 | Progress Note ---
DATE: SUBJECTIVE: Mr. Randall is feeling better. The arm seems to be getting better. REVIEW OF SYSTEMS: Unremarkable. LABORATORY DATA: Reviewed. His white count is down to 8.7 and hemoglobin 11. Blood culture is negative. Sodium 133, potassium 4.0, and creatinine of 2.45. PHYSICAL EXAMINATION: GENERAL: He is currently alert, oriented, does not seem to be in acute distress. VITAL SIGNS: Stable. Currently afebrile. HEENT: Not icteric. NECK: Supple. CHEST: Clear. HEART: S1 and S2. No S3, S4. ABDOMEN: Soft. EXTREMITIES: The arm continued with redness and erythema, but it is better than yesterday, seemed to be decreasing in size. IMPRESSION AND PLAN: Cellulitis of left upper extremity, morbidly obese patient, chronic kidney disease, slowly getting better. Continue with the same. MD SANDRA Rosen/YOEL /[id number]
[2018-08-06] MEDS: ATORVASTATIN 40 MG TAB PO SCH (20:58)
--- NOTE | 2018-08-06 20:59 | NUR ---
PATIENT C/O PAIN TO THE LEFT ARM WITH PAIN SCORE #6, MEDICATED WITH NORCO 1TAB ORDERED. CALL LIGHT AND URINAL WITHIN EASY REACH, INSTRUCTED TO CALL FOR ASSISTANCE NEEDED.
[2018-08-07] VITALS (8 sets, daily range): BP systolic 102–158; BP diastolic 60–83
[2018-08-07] MEDS: MORPHINE SULFATE INJ 4 MG/ML INJ 1ML IV PRN ×2 (01:45→21:38)
--- NOTE | 2018-08-07 01:46 | NUR ---
PATIENT C/O THROBBING PAIN TO THE LEFT ARM, MEDICATED WITH MORPHINE ORDERED. THE ARM IS ELEVATED ON PILLOW, URINAL EMPTIED AND CLEAN WITH CALL LIGHT IN EASY REACH. PATIENT INSTRUCTED TO CALL FOR ASSISTANCE UPON GETTING OUT OF THE BED DUE TO SIDE EFFECT FROM THE MEDICATION.
--- NOTE | 2018-08-07 03:30 | NUR ---
WALKING ROUNDS MADE, PATIENT IS SOUNDLY ASLEEP. HE'S EASY TO AROUSE, NO RESPIRATORY DISTRESS OBSERVED. CALL LIGHT AND URINAL WITHIN EASY REACH, HE DENIES PAIN.
[2018-08-07] MEDS: SODIUM CHLORIDE 0.9% 1000ML 1,000 ML IV SCH ×2 (06:44→16:05)
[2018-08-07] MEDS: PIPERACILLIN/TAZO 2.25 GM 50 ML IV SCH (06:44)
--- NOTE | 2018-08-07 07:00 | NUR ---
RCD PT AT BED PT IS ALERT AND ORIENTED ASSESSMENT DONE PT RESTING ON BED IV PATENT FAMILY AT BED SIDE BED LOW AND LOCKED CALL LIGHT IN REACH
[2018-08-07] MEDS: INSULIN REGULAR, HUMAN 100 UNIT/1 ML 3ML VIAL SQ SCH ×4 (07:30→21:00)
[2018-08-07] MEDS: ALLOPURINOL 300 MG TAB PO SCH (09:00)
[2018-08-07] MEDS: SODIUM BICARBONATE 650 MG TAB PO SCH ×3 (09:00→21:29)
[2018-08-07] MEDS: GEMFIBROZIL 600 MG TAB PO SCH ×2 (09:00→16:19)
[2018-08-07] MEDS: VANCOMYCIN 1GM/NS 250 ML 250 ML IV SCH (09:00)
[2018-08-07] MEDS: AMLODIPINE BESYLATE 5 MG TAB PO SCH (09:00)
[2018-08-07] MEDS: METOPROLOL SUCCINATE 50 MG TAB XL PO SCH (09:00)
[2018-08-07] MEDS: HEPARIN SOD (PORCINE) 5,000 UNIT/ML VIAL SC SCH ×2 (09:00→21:30)
[2018-08-07] MEDS: CYANOCOBALAMIN 1,000 MCG TAB PO SCH (09:00)
[2018-08-07] MEDS: FERROUS SULFATE 300 MG/5 ML LIQD PEG SCH (09:00)
--- NOTE | 2018-08-07 09:19 | NUR ---
IMM letter delivered and explained to pt. He verbalized understanding. Signed copy placed in chart. Copy to pt.
--- NOTE | 2018-08-07 09:25 | NUR ---
PAGED DR BURKETT AND NOTIFIED [facility] GOT THE ORDER TO CONTINUE THE SAME
[2018-08-07] MEDS: CEFEPIME 1GM/NS 0.9% 50 ML 50 ML IV SCH (12:00)
--- NOTE | 2018-08-07 13:04 | Progress Note ---
DATE: 08/07/2018 Medicine Progress Note SUBJECTIVE: The patient has left elbow . He is doing much better today. He is able to move and flex his arm with no issues. LABORATORY DATA: Lab findings show white count 8.7, hemoglobin is 11, hematocrit is 36.8, platelets of 238. Chemistry; sodium 138, potassium 4.4, chloride 105, bicarb 17, anion gap of 15, BUN 68, creatinine is 2.45. Microbiology, blood cultures, no growth. PHYSICAL EXAMINATION: VITAL SIGNS: Temperature 97.1, pulse 64, respiratory rate is 20, blood pressure is 127/79, pulse ox 95% on room air. GENERAL: Not in acute distress, alert and oriented x3, cooperative on examination. HEENT: Head is normocephalic and atraumatic. Eyes, pupils are equal, round, and reactive to light bilaterally. Extraocular movements are intact bilaterally. NECK: Supple. Good range of motion throughout. No evidence of erythema or exudates in the posterior pharynx. Has poor dentition. PULMONARY: Clear to auscultation bilaterally. No wheezing, no rales, no rhonchi, no crackles appreciated. CARDIOVASCULAR: Positive S1 and S2. No murmurs, rubs, or gallops appreciated. ABDOMEN: Soft, nondistended, and nontender to palpation. Bowel sounds are present. MUSCULOSKELETAL: Strength is 5/5 throughout. NEUROLOGIC: Cranial nerves II through XII are grossly intact. PSYCHIATRIC: Normal affect and mood. EXTREMITIES: No edema. Good range of motion throughout. IMPRESSION: 1. Left upper extremity cellulitis, now improving. 2. Chronic kidney disease stage 4-5. 3. Electrolyte abnormalities. 4. Diet-controlled diabetes. 5. Hypertension. 6. Morbid obesity. PLAN: Left upper extremity cellulitis has improved tremendously. We will continue with IV antibiotics till tomorrow, then we will discuss with ID on oral regimen so he can go home on. Venous Doppler of the left upper extremity preliminary shows no DVT, awaiting for final results. Nephrology is following his renal disease. Continue with same plan of care with no changes. MD NUNO Parekh/THONGL /[id number]
--- NOTE | 2018-08-07 16:42 | NUR ---
Nutrition Screen Note RD Recommendation for Physician: -Continue renal diet as ordered Plan of Care: RD following, monitoring for tolerance and adequacy Nutrition reason for involvement: Diagnosis Primary Diagnose(s): Left upper extremity cellulitis, now improving. PMH: CKD stage 4-5, morbid obesity, diet-controlled diabetes, hypertension, hyperuricemia, hyperlipidemia. Ht: 71in Wt: 322lb BMI: 44.9kg/m2 IBW:172lb RD Assessment: (08/07) Chart reviewed. Labs and meds reviewed. 62yo M, who was admitted for LUE cellulitis. HbA1C at 5.5%. Poor renal fx with hx of CKD. Visited pt in room who denied significant wt loss, denied decrease in appetite TUBE TESTER. Reported UBW ~300lbs. Pt denied chewing/swallowing problems and nausea/vomiting. Adequate meal intake at 75% since admission. Will cont to monitor. Please consult as needed. Current Diet: renal diet Malnutrition Evaluation (08/07) The patient does not meet criteria for a specified degree of malnutrition at this time. Will re-evaluate at follow-up as appropriate. Diet Education Needs Assessment: Diet education not indicated. Pt seeing a renal specialist for years for diet education. Nutrition Care Level: low Signed: Barbara Terrell, MS, RD, LD
--- NOTE | 2018-08-07 19:30 | NUR ---
PATIENT RESTING ON BED BED SIDE REPORT GIVEN TO ONCOMING NURSE
[2018-08-07] MEDS: ATORVASTATIN 40 MG TAB PO SCH (21:29)
[2018-08-08] VITALS: BP 137/66
[2018-08-08 04:00] VITALS: BP 134/63
[2018-08-08] MEDS: SODIUM CHLORIDE 0.9% 1000ML 1,000 ML IV SCH (05:25)
[2018-08-08 06:13] LABS: ALBUMIN 2.4 g/dL (3.5-5.0); ALBUMIN/GLOBULIN RATIO 0.4 (0.8-2.0); ANION GAP 10.9 mmol/L (8-16); CREATININE, SERUM 1.49 mg/dL (0.72-1.25); POTASSIUM 3.9 mmol/L (3.5-5.1)
--- NOTE | 2018-08-08 07:11 | NUR ---
REPORT GIVEN TO ONCOMING NURSE,WALKING ROUNDS MADE.PT RESTING IN BED WITH NO S/S OF DISTRESS.
[2018-08-08] MEDS: INSULIN REGULAR, HUMAN 100 UNIT/1 ML 3ML VIAL SQ SCH ×2 (07:30→11:30)
[2018-08-08 08:00] VITALS: BP 134/63
[2018-08-08] MEDS: AMLODIPINE BESYLATE 5 MG TAB PO SCH (09:00)
[2018-08-08] MEDS: HEPARIN SOD (PORCINE) 5,000 UNIT/ML VIAL SC SCH (09:00)
[2018-08-08] MEDS: METOPROLOL SUCCINATE 50 MG TAB XL PO SCH (09:00)
[2018-08-08] MEDS: GEMFIBROZIL 600 MG TAB PO SCH (09:00)
[2018-08-08] MEDS: SODIUM BICARBONATE 650 MG TAB PO SCH (09:00)
[2018-08-08] MEDS: FERROUS SULFATE 300 MG/5 ML LIQD PEG SCH (09:00)
[2018-08-08] MEDS ORDERED: CEFEPIME HCL 1 GM VIAL IV SCH (09:00)
[2018-08-08] MEDS ORDERED: NYSTATIN 15 GM POWDER UD BTL TOP SCH (09:00)
[2018-08-08] MEDS: CYANOCOBALAMIN 1,000 MCG TAB PO SCH (09:00)
[2018-08-08] MEDS: VANCOMYCIN 1GM/NS 250 ML 250 ML IV SCH (09:00)
[2018-08-08] MEDS: ALLOPURINOL 300 MG TAB PO SCH (09:00)
--- NOTE | 2018-08-08 10:32 | NUR ---
CASE MANAGEMENT INITIAL ASSESSMENT Physician/Ophthalmologist to bedside to discuss plan of care with patient/family. CM/SW role and care transitions discussed. Anticipated discharge plan discussed along with duration of care. CM/SW discussed patients right to make decisions in care. CM work hours given. Patient lives: PATIENT LIVES IN SINGLE STORY HOME WITH Admit/Transfer: ED Hospital/ER visits since last admit: OVER 30 DAYS POA/Emergency contact: CINDY TORO- PATIENT - [phone] Current/Previous Home Health: NONE PCP/Follow-up Care: WAS [facility] BEFORE HE RITED. PATIENT CURENTLY SEEKING NEW PCP. WILL FOLLOW UP WITH DR. Mariah MCNEIL WITHIN 7 DAYS HOWEVER. Current/Previous DME: ELECTRIC WHEEL CHAIR DUE TO BACK ISSUES AND PAIN, 3 IN 1 COMMODE, WALKER, CANE Medications (referring to index hospitalization or the first time you were in the hospital) a. Were changes made in your medications when you were in the hospital on [date of index hospitalization]? N/A Note: If no or not sure, please skip to question d b. Did you understand the changes? N/A c. Were you able to obtain your new medications right away? N/A d. Were you able to take your medications like the doctor wanted you to? N/A e. Did the hospital give you an accurate, easy to understand list of medications when you left? YES Scale of 1-10 how comfortable does patient feel with disease management in outpatient setting: Other Services: NONE Employment Status: PATIENT UNEMPLOYED AND ON DISABILITY Areas of Concerns: NONE Referral Needs: NONE Education Needs: NONE IMM/GUERRERO given and signed (if applicable): NO Goal for discharge: DISCHARGE HOME WITH NO NEEDS CM/SW left business card at the bedside with contact information. Name and number was also written on the patients whiteboard. Patient verbalized understanding of discussion. CM will follow-up with ongoing discharge and transition of care needs.
[2018-08-08] MEDS: CEFEPIME 1GM/NS 0.9% 50 ML 50 ML IV SCH (12:00)
--- NOTE | 2018-08-08 12:58 | NUR ---
PAGED DR MAYBERRY AND NOTIFIED ANTIBIOTIC AT HOME HE SAID ITS OK
[2018-08-08] MEDS ORDERED: CLEOCIN HCL150 MG PO (13:00)
--- NOTE | 2018-08-08 13:58 | NUR ---
PT WENT HOME IN SAFE CONDITION WITH HIS
--- NOTE | 2018-08-10 08:28 | Discharge Summary ---
FINAL DISCHARGE DIAGNOSES: 1. Left upper extremity cellulitis, improved with IV antibiotics - discharged on oral clindamycin for 7 days by Infectious Disease recommendations. 2. Chronic kidney disease stage 4-5 with hyperkalemia resolved, has baseline chronic kidney disease, followed up with as an outpatient. 3. Diet-controlled diabetes. 4. Hypertension. 5. Morbid obesity. CONSULTANTS: Nephrology and Infectious Disease. PHYSICAL EXAMINATION: VITAL SIGNS: Temperature is 97.3, pulse 63, respirations 20, blood pressure 147/78, and pulse ox 93% on room air. LABORATORY FINDINGS: Show white count 8.7, hemoglobin 11, hematocrit 37, and platelets of 238. Chemistry: Sodium 140, potassium 3.9, chloride 111, bicarb 22, anion gap of 10, BUN is 35, creatinine 1.49, glucose is 103, albumin is 2.4. Urinalysis was negative. MICROBIOLOGY: Blood cultures were negative. IMAGING STUDIES: Chest x-ray was found to be negative. Venous Doppler of the left upper extremity negative for DVT. HOSPITAL COURSE: A 62-year-old male, morbidly obese, CKD stage 4-5 with underlying hyperkalemia. The patient came in with left upper extremity cellulitis with significant redness. ID was consulted. The patient was on IV antibiotics. Blood cultures were negative. His left upper extremity venous Doppler was found to be negative for DVT. This was likely underlying cellulitis according to ID. The patient was discharged on oral clindamycin for several more days per ID recommendations. Prescription was written and placed in the chart. The patient's train crew member was consulted due to underlying CKD and hyperkalemia. On discharge, his potassium was 3.9 and his creatinine went down to 1.5. No further recommendations by Nephrology. The patient was cleared for discharge by all consultants including ID and Nephrology on this patient's case. The patient was cleared back to normal baseline prior to being discharged home. On the day of discharge, vital signs stable, stable. The patient was seen and evaluated . The patient verbalized understanding and agrees to plan of care and follow up accordingly as an outpatient with the primary care physician in 1 week and ID in 1-2 weeks' time. The patient is advised to follow up with his train crew member in about 2 weeks' time. The patient was cleared for discharge by consultants. MEDICATIONS: See med reconciliation form including clindamycin x7 days. DISPOSITION: Home. CONDITION: Stable. DIET: Heart healthy. If there are any worsening symptoms, the patient is advised to come back to the ED for further evaluation. Discharge summary took greater than 35 minutes. MD NUNO Parekh/YOEL /[id number]
== END 2018-08-08 13:58 | disposition home or self-care (01) | DRG 872 ==
LOC: ER 19:48 → ERHOLD 08-05 00:05 → MED/SURG2 08-05 01:55
PROVIDERS: ADMIT Internal Medicine; ATTEND Internal Medicine
DX: A41.9 Sepsis, unspecified organism (principal); L03.114 Cellulitis of left upper limb; N18.5 Chronic kidney disease, stage 5; Z68.41 Body mass index [BMI] 40.0-44.9, adult; I12.0 Hypertensive chronic kidney disease with stage 5 chronic kidney disease or end stage renal disease; E87.5 Hyperkalemia; E10.9 Type 1 diabetes mellitus without complications; E11.22 Type 2 diabetes mellitus with diabetic chronic kidney disease; E66.01 Morbid (severe) obesity due to excess calories; Z71.3 Dietary counseling and surveillance
CPT/HCPCS: 36415; 71045; 80048; 80053; 80202; 81001; 82948; 83036; 83605; 85025; 87040; 93971; 96367; 96372; 96376; 99284; J0692; J1644; J1940; J2270; J2405; J2543; J3370; J7030; J7050; J7799

== ENCOUNTER 2022-09-12 15:42 | Emergency (ER) | payer OTHER ==
[~2022-09-12] VITALS: Ht 180.3 cm; Wt 149.2 kg
[~2022-09-12 15:42] MED LIST changes: +AMLODIPINE BESYL5 MG PO; +ATORVASTATIN CA20 MG PO; +CALCIUM + VITA1 EACH PO; +CLEOCIN HCL150 MG PO; +FERROUS SULFAT325 M1 PEG; +GEMFIBROZIL600 MG PO; +HUMIRA40 MG/0.1 INJ; +METFORMIN HCL500 MG PO; +METOPROLOL SUCC50 MG PO; +SPIRONOLACTONE25 MG PO; +VITAMIN B-121000 MCG PO; +VITAMIN B12-FO1 EACH PO
[2022-09-12] MEDS ORDERED: CLINDAMYCIN HC150 MG PO (16:02)
[2022-09-12 16:07] VITALS: BP 158/74
== END 2022-09-12 16:27 | disposition home or self-care (01) ==
LOC: ER 15:48
DX: L03.115 Cellulitis of right lower limb (principal); I12.9 Hypertensive chronic kidney disease with stage 1 through stage 4 chronic kidney disease, or unspecified chronic kidney disease; E11.22 Type 2 diabetes mellitus with diabetic chronic kidney disease; N18.9 Chronic kidney disease, unspecified; E78.5 Hyperlipidemia, unspecified; M10.9 Gout, unspecified; M21.371 Foot drop, right foot; Z85.828 Personal history of other malignant neoplasm of skin
CPT/HCPCS: 99283

== ENCOUNTER → 2022-09-30 | Outpatient (CLI) | payer MEDICARE ==
[~2022-09-30] MED LIST changes: +CLINDAMYCIN HC150 MG PO
== END ==
LOC: RAD 14:00
PROVIDERS: ATTEND Family Medicine Adult Medicine
DX: R05.3 Chronic cough (principal)
CPT/HCPCS: 71046; 93306

== ENCOUNTER 2022-10-14 19:17 | Inpatient (IN) | payer MEDICARE ==
[~2022-10-14] VITALS: Ht 180.3 cm; Wt 149.2 kg
[2022-10-14] MEDS ORDERED: ACETAMINOPHEN 325 MG TAB PO STA (19:39)
[2022-10-14 19:53] LABS: BASOPHILS % 0.4 % (0.0-1.0); EOSINOPHILS % 0.2 % (0.0-6.0); HEMATOCRIT 47.1 % (38.2-49.6); HEMOGLOBIN 15.1 g/dL (14.0-18.0); LYMPHOCYTES # (AUTO) 0.5 (1.0-3.2); LYMPHOCYTES % 4.7 % (18.0-39.1); MEAN CORPUSCULAR HEMOGLOBIN 30.9 pg (28-32); MEAN CORPUSCULAR HGB CONC 32.1 g/dL (31-35); MEAN CORPUSCULAR VOLUME 96.3 fL (81-99); MONOCYTES # (AUTO) 1.1 (0.2-0.8); MONOCYTES % 11.1 % (4.4-11.3); NEUTROPHILS # (AUTO) 7.9 (2.1-6.9); PLATELET COUNT 153 x10e3/uL (140-360); RED BLOOD COUNT 4.89 x10e6/uL (4.3-5.7)
[2022-10-14 20:07] LABS: ALBUMIN 2.4 g/dL (3.5-5.0); ALBUMIN/GLOBULIN RATIO 0.5 (0.8-2.0); CALCIUM 8.9 mg/dL (8.4-10.2); CREATININE, SERUM 2.59 mg/dL (0.72-1.25)
[2022-10-14 20:13] LABS: CREATINE KINASE MB 1.2 ng/mL (0-5.0)
[2022-10-14] MEDS ORDERED: SODIUM CHLORIDE FLUSH 10 ML SYR INJ PRN (21:15)
[2022-10-14] MEDS ORDERED: FUROSEMIDE INJ 10 MG/ML 4 ML VIAL IV STA (21:16)
[2022-10-14 22:05] VITALS: PULSE 71; RESP 18; O2SAT 96
[2022-10-14 23:00] VITALS: BP 110/74; PULSE 72; RESP 18; TEMP 98.6; O2SAT 96
[2022-10-14 23:30] VITALS: BP 110/74; PULSE 72; RESP 18; TEMP 98.6; O2SAT 96
[2022-10-14 23:52] VITALS: BP 121/105; PULSE 126; RESP 20; TEMP 98.1; O2SAT 97
[2022-10-14 23:55] VITALS: BP 121/105; PULSE 126; RESP 20; TEMP 98.1; O2SAT 97
[2022-10-15] VITALS (8 sets, daily range): BP systolic 106–139; BP diastolic 61–88; PULSE 71–123; RESP 18–24; TEMP 97.6–100.4; O2SAT 91–100
[2022-10-15] MEDS: METOPROLOL TARTRATE INJ 1 MG/ML VIAL IV PRN (00:13)
[2022-10-15] MEDS ORDERED: IRON325 M1 (04:05)
[2022-10-15] MEDS ORDERED: LOSARTAN POTAS100 MG PO (04:09)
[2022-10-15] MEDS ORDERED: INVOKANA100 MG (04:09)
[2022-10-15] MEDS: BENZONATATE 100 MG CAP PO PRN (05:24)
[2022-10-15] MEDS: GUAIFENESIN/DEXTROMETHORPHAN LIQD 5 ML UDC NG PRN (05:24)
[2022-10-15] MEDS: ACETAMINOPHEN 325 MG TAB PO PRN ×2 (05:25→20:31)
[2022-10-15 05:56] LABS: BASOPHILS % 0.4 % (0.0-1.0); HEMATOCRIT 47.1 % (38.2-49.6); HEMOGLOBIN 14.6 g/dL (14.0-18.0); LYMPHOCYTES # (AUTO) 0.7 (1.0-3.2); LYMPHOCYTES % 6.3 % (18.0-39.1); MEAN CORPUSCULAR HEMOGLOBIN 30.8 pg (28-32); MEAN CORPUSCULAR VOLUME 99.4 fL (81-99); MONOCYTES # (AUTO) 1.2 (0.2-0.8); MONOCYTES % 11.4 % (4.4-11.3); NEUTROPHILS # (AUTO) 8.9 (2.1-6.9); NEUTROPHILS % 81.3 % (38.7-80.0); PLATELET COUNT 157 x10e3/uL (140-360); RED BLOOD COUNT 4.74 x10e6/uL (4.3-5.7)
[2022-10-15] MEDS ORDERED: FUROSEMIDE INJ 10 MG/ML 2 ML VIAL IV SCH (06:00)
[2022-10-15] MEDS ORDERED: SODIUM BICARBONATE 650 MG TAB PO SCH (06:00)
[2022-10-15 06:30] LABS: ALBUMIN 2.3 g/dL (3.5-5.0); ALBUMIN/GLOBULIN RATIO 0.5 (0.8-2.0); ANION GAP 16.6 mmol/L (8-16); CALCIUM 8.9 mg/dL (8.4-10.2); CREATININE, SERUM 2.94 mg/dL (0.72-1.25); POTASSIUM 4.6 mmol/L (3.5-5.1)
[2022-10-15 06:48] LABS: CHOL/HDL RATIO 3.2 (3.9-4.7)
[2022-10-15 07:08] LABS: CREATINE KINASE MB 1.3 ng/mL (0-5.0)
[2022-10-15] MEDS: ALLOPURINOL 300 MG TAB PO SCH (09:21)
[2022-10-15] MEDS: FERROUS SULFATE 325 MG TAB PO SCH (09:21)
[2022-10-15] MEDS: ATORVASTATIN 40 MG TAB PO SCH (09:21)
[2022-10-15] MEDS: ALBUMIN 5% 250ML 250 ML IV SCH ×2 (12:30→15:30)
[2022-10-15] MEDS: SODIUM BICARBONATE 650 MG TAB PO SCH ×2 (13:27→20:31)
[2022-10-15 14:21] LABS: CREATININE,URINE RANDOM 122.2 mg/dL (63-166)
[2022-10-15 14:38] LABS: TOTAL PROTEIN, URINE 635.6 mg/dL (1-14)
[2022-10-15 14:54] LABS: CREATINE KINASE MB 1.6 ng/mL (0-5.0)
[2022-10-15] MEDS ORDERED: ALBUTEROL SULF 0.083% NEB SOLN 3 ML NEB NEB PRN (19:00)
[2022-10-15] MEDS: IPRATROPIUM BROMIDE 0.02% 2.5 ML NEB NEB PRN (19:06)
[2022-10-15] MEDS ORDERED: FUROSEMIDE INJ 10 MG/ML 4 ML VIAL IV ONE (19:15)
[2022-10-15] MEDS ORDERED: CEFTRIAXONE 1 GM VIAL IM SCH (21:00)
[2022-10-16] VITALS (15 sets, daily range): BP systolic 88–149; BP diastolic 46–88; PULSE 44–139; RESP 18–23; TEMP 97.6–99.7; O2SAT 93–96
[2022-10-16] MEDS: SODIUM BICARBONATE 650 MG TAB PO SCH ×3 (06:10→22:12)
[2022-10-16 06:49] LABS: BASOPHILS % 0.2 % (0.0-1.0); HEMATOCRIT 45.6 % (38.2-49.6); LYMPHOCYTES # (AUTO) 0.6 (1.0-3.2); LYMPHOCYTES % 6.7 % (18.0-39.1); MEAN CORPUSCULAR HGB CONC 30.7 g/dL (31-35); MEAN CORPUSCULAR VOLUME 100.9 fL (81-99); MONOCYTES # (AUTO) 1.4 (0.2-0.8); MONOCYTES % 14.8 % (4.4-11.3); NEUTROPHILS # (AUTO) 7.4 (2.1-6.9); NEUTROPHILS % 77.8 % (38.7-80.0); PLATELET COUNT 158 x10e3/uL (140-360); RED BLOOD COUNT 4.52 x10e6/uL (4.3-5.7); RED CELL DISTRIBUTION WIDTH 16.3 % (11.7-14.4)
[2022-10-16 06:54] LABS: ANION GAP 17.2 mmol/L (8-16); CALCIUM 8.4 mg/dL (8.4-10.2); CREATININE, SERUM 3.87 mg/dL (0.72-1.25); PHOSPHORUS 6.1 MG/DL (2.3-4.7); POTASSIUM 4.2 mmol/L (3.5-5.1)
[2022-10-16] MEDS: IPRATROPIUM BROMIDE 0.02% 2.5 ML NEB NEB PRN (08:14)
[2022-10-16] MEDS: ATORVASTATIN 40 MG TAB PO SCH (09:00)
[2022-10-16] MEDS: FERROUS SULFATE 325 MG TAB PO SCH (09:00)
[2022-10-16] MEDS: ALLOPURINOL 300 MG TAB PO SCH (09:00)
[2022-10-16] MEDS: METOPROLOL SUCCINATE 25 MG TAB XL PO SCH (09:01)
[2022-10-16 09:18] LABS: CREATINE KINASE MB 3.9 ng/mL (0-5.0)
[2022-10-16] MEDS: FUROSEMIDE INJ 10 MG/ML 4 ML VIAL IV SCH ×3 (09:32→22:12)
[2022-10-16] MEDS ORDERED: FUROSEMIDE INJ 10 MG/ML 4 ML VIAL IV SCH (14:00)
[2022-10-16] MEDS: METOPROLOL TARTRATE INJ 1 MG/ML VIAL IV PRN (15:05)
[2022-10-16] MEDS: ACETAMINOPHEN 325 MG TAB PO PRN (15:31)
[2022-10-16] MEDS: AMIODARONE HCL 200 MG TAB PO SCH (16:05)
[2022-10-16] MEDS ORDERED: MANNITOL 25% 12.5GM/50 ML VIAL IV ONE (19:30)
[2022-10-17] VITALS (64 sets, daily range): BP systolic 82–150; BP diastolic 48–124; PULSE 61–118; RESP 14–26; TEMP 97.5–98.5; O2SAT 88–100
[2022-10-17] MEDS: FUROSEMIDE INJ 10 MG/ML 4 ML VIAL IV SCH ×2 (05:28→14:00)
[2022-10-17] MEDS: SODIUM BICARBONATE 650 MG TAB PO SCH ×3 (05:32→22:09)
[2022-10-17 07:04] LABS: BASOPHILS % 0.4 % (0.0-1.0); EOSINOPHILS % 0.1 % (0.0-6.0); HEMATOCRIT 49.2 % (38.2-49.6); HEMOGLOBIN 14.9 g/dL (14.0-18.0); LYMPHOCYTES # (AUTO) 0.8 (1.0-3.2); LYMPHOCYTES % 10.9 % (18.0-39.1); MEAN CORPUSCULAR HEMOGLOBIN 30.7 pg (28-32); MEAN CORPUSCULAR HGB CONC 30.3 g/dL (31-35); MEAN CORPUSCULAR VOLUME 101.2 fL (81-99); MONOCYTES % 12.7 % (4.4-11.3); NEUTROPHILS # (AUTO) 5.8 (2.1-6.9); NEUTROPHILS % 74.5 % (38.7-80.0); PLATELET COUNT 179 x10e3/uL (140-360); RED BLOOD COUNT 4.86 x10e6/uL (4.3-5.7); RED CELL DISTRIBUTION WIDTH 16.2 % (11.7-14.4)
[2022-10-17 07:25] LABS: ANION GAP 20.8 mmol/L (8-16); CALCIUM 8.6 mg/dL (8.4-10.2); CREATININE, SERUM 5.5 mg/dL (0.72-1.25); PHOSPHORUS 8.8 MG/DL (2.3-4.7); POTASSIUM 4.8 mmol/L (3.5-5.1)
[2022-10-17] MEDS ORDERED: LIDOCAINE HCL 2% LOCAL 20 ML VIAL ONE (08:49)
[2022-10-17] MEDS: FERROUS SULFATE 325 MG TAB PO SCH (09:00)
[2022-10-17] MEDS: ATORVASTATIN 40 MG TAB PO SCH (09:00)
[2022-10-17] MEDS: ALLOPURINOL 300 MG TAB PO SCH (09:00)
[2022-10-17] MEDS: METOPROLOL SUCCINATE 25 MG TAB XL PO SCH (09:00)
[2022-10-17] MEDS: AMIODARONE HCL 200 MG TAB PO SCH ×2 (09:00→15:44)
[2022-10-17] MEDS ORDERED: MANNITOL 20% 500ML 500 ML IV ONE (12:19)
[2022-10-17] MEDS ORDERED: HEPARIN SOD (PORCINE) 1000 UNIT/ML SDV IV PRN (12:30)
[2022-10-17] MEDS ORDERED: SODIUM CHLORIDE 0.9% 1000ML 2,000 ML IV PRN (12:30)
[2022-10-17] MEDS ORDERED: MANNITOL 25% 12.5GM/50 ML VIAL IV PRN (12:30)
[2022-10-17] MEDS: BENZONATATE 100 MG CAP PO PRN (23:06)
[2022-10-17] MEDS: GUAIFENESIN/DEXTROMETHORPHAN LIQD 5 ML UDC NG PRN (23:06)
[2022-10-18] VITALS (70 sets, daily range): BP systolic 71–116; BP diastolic 53–82; PULSE 56–120; RESP 10–22; TEMP 97.3–98.4; O2SAT 85–99
[2022-10-18] MEDS: VASOPRESSIN 60 UNIT in DEXTROSE 5% 50ML 50 ML IV PRN (06:09)
[2022-10-18] MEDS: SODIUM BICARBONATE 650 MG TAB PO SCH ×4 (06:09→22:34)
[2022-10-18 06:44] LABS: BASOPHILS % 0.6 % (0.0-1.0); EOSINOPHILS % 0.2 % (0.0-6.0); HEMATOCRIT 48.2 % (38.2-49.6); HEMOGLOBIN 14.5 g/dL (14.0-18.0); LYMPHOCYTES # (AUTO) 0.7 (1.0-3.2); LYMPHOCYTES % 11.6 % (18.0-39.1); MEAN CORPUSCULAR HEMOGLOBIN 30.5 pg (28-32); MEAN CORPUSCULAR HGB CONC 30.1 g/dL (31-35); MEAN CORPUSCULAR VOLUME 101.5 fL (81-99); MONOCYTES # (AUTO) 0.7 (0.2-0.8); MONOCYTES % 10.9 % (4.4-11.3); NEUTROPHILS # (AUTO) 4.8 (2.1-6.9); NEUTROPHILS % 74.8 % (38.7-80.0); PLATELET COUNT 169 x10e3/uL (140-360); RED BLOOD COUNT 4.75 x10e6/uL (4.3-5.7); RED CELL DISTRIBUTION WIDTH 15.8 % (11.7-14.4)
[2022-10-18 07:01] LABS: ANION GAP 19.9 mmol/L (8-16); CREATININE, SERUM 5.85 mg/dL (0.72-1.25); MAGNESIUM 2.4 MG/DL (1.3-2.1); PHOSPHORUS 9.8 MG/DL (2.3-4.7); POTASSIUM 4.9 mmol/L (3.5-5.1)
[2022-10-18] MEDS: ONDANSETRON HCL INJ 2MG/ML 2ML 2 MG/ML VIAL IV PRN (08:45)
[2022-10-18] MEDS: Morphine 4mg INJECTION 4 MG/ML INJ IV PRN (08:46)
[2022-10-18] MEDS: AMIODARONE HCL 200 MG TAB PO SCH ×2 (09:00→17:00)
[2022-10-18] MEDS: FERROUS SULFATE 325 MG TAB PO SCH (09:00)
[2022-10-18] MEDS: ATORVASTATIN 40 MG TAB PO SCH (09:00)
[2022-10-18] MEDS: ALLOPURINOL 300 MG TAB PO SCH (09:00)
[2022-10-18] MEDS: METOPROLOL SUCCINATE 25 MG TAB XL PO SCH (09:00)
[2022-10-18] MEDS ORDERED: ALBUMIN ONE (10:41)
[2022-10-18] MEDS ORDERED: ALBUMIN 25% 12.5GM 0.25 GM/ML BTL IV PRN (11:30)
[2022-10-19] VITALS (82 sets, daily range): BP systolic 87–143; BP diastolic 51–118; PULSE 61–80; RESP 11–31; TEMP 97.7–98.2; O2SAT 91–100
[2022-10-19] MEDS: Morphine 4mg INJECTION 4 MG/ML INJ IV PRN (00:47)
[2022-10-19] MEDS: SODIUM BICARBONATE 650 MG TAB PO SCH ×3 (05:00→21:54)
[2022-10-19 06:38] LABS: BASOPHILS % 0.7 % (0.0-1.0); EOSINOPHILS # (AUTO) 0.1 (0.0-0.4); EOSINOPHILS % 0.8 % (0.0-6.0); HEMATOCRIT 50.1 % (38.2-49.6); HEMOGLOBIN 14.9 g/dL (14.0-18.0); LYMPHOCYTES # (AUTO) 0.7 (1.0-3.2); LYMPHOCYTES % 11.6 % (18.0-39.1); MEAN CORPUSCULAR HEMOGLOBIN 30.7 pg (28-32); MEAN CORPUSCULAR HGB CONC 29.7 g/dL (31-35); MEAN CORPUSCULAR VOLUME 103.3 fL (81-99); MONOCYTES # (AUTO) 0.6 (0.2-0.8); MONOCYTES % 10.3 % (4.4-11.3); NEUTROPHILS # (AUTO) 4.6 (2.1-6.9); NEUTROPHILS % 74.6 % (38.7-80.0); PLATELET COUNT 163 x10e3/uL (140-360); RED BLOOD COUNT 4.85 x10e6/uL (4.3-5.7); RED CELL DISTRIBUTION WIDTH 15.8 % (11.7-14.4)
[2022-10-19 07:04] LABS: ALBUMIN 2.7 g/dL (3.5-5.0); ALBUMIN/GLOBULIN RATIO 0.6 (0.8-2.0); ANION GAP 20.8 mmol/L (8-16); CALCIUM 8.3 mg/dL (8.4-10.2); CREATININE, SERUM 5.4 mg/dL (0.72-1.25); POTASSIUM 4.8 mmol/L (3.5-5.1)
[2022-10-19] MEDS: ATORVASTATIN 40 MG TAB PO SCH (09:00)
[2022-10-19] MEDS: AMIODARONE HCL 200 MG TAB PO SCH ×2 (09:00→17:44)
[2022-10-19] MEDS ORDERED: ALBUMIN 25% 12.5GM 0.25 GM/ML BTL IV PRN (09:00)
[2022-10-19] MEDS: METOPROLOL SUCCINATE 25 MG TAB XL PO SCH (09:00)
[2022-10-19] MEDS: ASPIRIN 81 MG ENTERIC COATED PO SCH (09:00)
[2022-10-19] MEDS: FERROUS SULFATE 325 MG TAB PO SCH (09:00)
[2022-10-19] MEDS: ALLOPURINOL 300 MG TAB PO SCH (09:00)
[2022-10-19 14:20] LABS: INR 1.11; PROTHROMBIN TIME 14.8 seconds (11.9-14.5)
[2022-10-19] MEDS: VASOPRESSIN 60 UNIT in DEXTROSE 5% 50ML 50 ML IV PRN (14:45)
[2022-10-19] MEDS ORDERED: FENTANYL CITRATE/PF 100MCG/2 ML INJ ONE (15:21)
[2022-10-19] MEDS ORDERED: MIDAZOLAM HCL 2 MG/2 ML VIAL ONE (15:21)
[2022-10-19] MEDS ORDERED: HEPARIN SOD (PORCINE) 1000 UNIT/ML SDV ONE (15:25)
[2022-10-19] MEDS: TRAMADOL HCL 50 MG TAB PO PRN (17:45)
[2022-10-19] MEDS: ONDANSETRON HCL INJ 2MG/ML 2ML 2 MG/ML VIAL IV PRN (17:45)
[2022-10-19 18:40] LABS: ANION GAP 18.3 mmol/L (8-16); CALCIUM 8.4 mg/dL (8.4-10.2); CREATININE, SERUM 4.49 mg/dL (0.72-1.25); POTASSIUM 4.3 mmol/L (3.5-5.1)
[2022-10-20] VITALS (94 sets, daily range): BP systolic 87–165; BP diastolic 58–147; PULSE 53–81; RESP 11–28; TEMP 97–98.1; O2SAT 87–96
[2022-10-20] MEDS: SODIUM BICARBONATE 650 MG TAB PO SCH ×3 (05:28→22:01)
[2022-10-20 06:35] LABS: BASOPHILS # (AUTO) 0.1 (0.0-0.1); BASOPHILS % 0.9 % (0.0-1.0); EOSINOPHILS # (AUTO) 0.1 (0.0-0.4); EOSINOPHILS % 0.9 % (0.0-6.0); HEMATOCRIT 49.3 % (38.2-49.6); HEMOGLOBIN 14.6 g/dL (14.0-18.0); LYMPHOCYTES # (AUTO) 0.7 (1.0-3.2); LYMPHOCYTES % 10.5 % (18.0-39.1); MEAN CORPUSCULAR HEMOGLOBIN 30.5 pg (28-32); MEAN CORPUSCULAR HGB CONC 29.6 g/dL (31-35); MEAN CORPUSCULAR VOLUME 103.1 fL (81-99); MONOCYTES # (AUTO) 0.6 (0.2-0.8); MONOCYTES % 8.8 % (4.4-11.3); NEUTROPHILS # (AUTO) 5.3 (2.1-6.9); NEUTROPHILS % 76.6 % (38.7-80.0); PLATELET COUNT 165 x10e3/uL (140-360); RED BLOOD COUNT 4.78 x10e6/uL (4.3-5.7); RED CELL DISTRIBUTION WIDTH 15.1 % (11.7-14.4)
[2022-10-20 06:58] LABS: ALBUMIN 2.8 g/dL (3.5-5.0); ALBUMIN/GLOBULIN RATIO 0.6 (0.8-2.0); ANION GAP 18.3 mmol/L (8-16); CALCIUM 8.3 mg/dL (8.4-10.2); CREATININE, SERUM 5.12 mg/dL (0.72-1.25); POTASSIUM 4.3 mmol/L (3.5-5.1)
[2022-10-20] MEDS ORDERED: LIDOCAINE HCL 1% LOCAL INJ 20 ML VIAL ONE (07:15)
[2022-10-20] MEDS ORDERED: SODIUM CHLORIDE 0.9% 250ML 250 ML ONE (07:15)
[2022-10-20] MEDS: ASPIRIN 81 MG ENTERIC COATED PO SCH (08:34)
[2022-10-20] MEDS: AMIODARONE HCL 200 MG TAB PO SCH ×2 (08:34→17:00)
[2022-10-20] MEDS: ALLOPURINOL 300 MG TAB PO SCH (08:35)
[2022-10-20] MEDS: FERROUS SULFATE 325 MG TAB PO SCH (08:36)
[2022-10-20] MEDS: METOPROLOL SUCCINATE 25 MG TAB XL PO SCH (08:36)
[2022-10-20] MEDS: ATORVASTATIN 40 MG TAB PO SCH (08:37)
[2022-10-20] MEDS ORDERED: BUMETANIDE INJ 0.25MG/ML 4ML VIAL IV ONE (09:30)
[2022-10-20] MEDS: TRAMADOL HCL 50 MG TAB PO PRN (11:12)
[2022-10-20] MEDS ORDERED: ALBUMIN 25% 12.5GM 0.25 GM/ML BTL IV PRN (16:00)
[2022-10-20] MEDS ORDERED: NOREPINEPHRINE 8 MG/D5W 250 ML 250 ML IV SCH (18:00)
[2022-10-21] VITALS (65 sets, daily range): BP systolic 87–144; BP diastolic 60–104; PULSE 56–83; RESP 11–27; TEMP 97.8–98.4; O2SAT 92–97
[2022-10-21] MEDS: SODIUM BICARBONATE 650 MG TAB PO SCH (05:57)
[2022-10-21 06:28] LABS: BASOPHILS # (AUTO) 0.1 (0.0-0.1); BASOPHILS % 0.9 % (0.0-1.0); EOSINOPHILS # (AUTO) 0.2 (0.0-0.4); EOSINOPHILS % 1.7 % (0.0-6.0); HEMATOCRIT 50.6 % (38.2-49.6); HEMOGLOBIN 15.2 g/dL (14.0-18.0); LYMPHOCYTES # (AUTO) 0.8 (1.0-3.2); LYMPHOCYTES % 8.9 % (18.0-39.1); MEAN CORPUSCULAR HEMOGLOBIN 30.6 pg (28-32); MEAN CORPUSCULAR VOLUME 101.8 fL (81-99); MONOCYTES # (AUTO) 0.7 (0.2-0.8); MONOCYTES % 7.5 % (4.4-11.3); NEUTROPHILS # (AUTO) 7.3 (2.1-6.9); NEUTROPHILS % 78.1 % (38.7-80.0); PLATELET COUNT 184 x10e3/uL (140-360); RED BLOOD COUNT 4.97 x10e6/uL (4.3-5.7); RED CELL DISTRIBUTION WIDTH 15.1 % (11.7-14.4)
[2022-10-21 06:47] LABS: ALBUMIN 3.1 g/dL (3.5-5.0); ALBUMIN/GLOBULIN RATIO 0.7 (0.8-2.0); ANION GAP 21.1 mmol/L (8-16); CALCIUM 8.3 mg/dL (8.4-10.2); CREATININE, SERUM 6.09 mg/dL (0.72-1.25); POTASSIUM 4.1 mmol/L (3.5-5.1)
[2022-10-21 07:15] LABS: MAGNESIUM 2.5 MG/DL (1.3-2.1); PHOSPHORUS 8.3 MG/DL (2.3-4.7)
[2022-10-21] MEDS: FERROUS SULFATE 325 MG TAB PO SCH (08:22)
[2022-10-21] MEDS: AMIODARONE HCL 200 MG TAB PO SCH (08:23)
[2022-10-21] MEDS: ATORVASTATIN 40 MG TAB PO SCH (08:23)
[2022-10-21] MEDS: ALLOPURINOL 300 MG TAB PO SCH (08:23)
[2022-10-21] MEDS: ASPIRIN 81 MG ENTERIC COATED PO SCH (08:24)
[2022-10-21] MEDS: METOPROLOL SUCCINATE 25 MG TAB XL PO SCH (08:25)
[2022-10-21] MEDS ORDERED: BUMETANIDE 10 MG in SODIUM CHLORIDE 0.9% 60 ML IV SCH (16:00)
== END 2022-10-21 15:35 | disposition other institution (70) | DRG 871 ==
LOC: ER 19:38 → ERHOLD 21:16 → MED/SURG3 22:52 → ICU 10-16 21:12
PROVIDERS: ADMIT Internal Medicine; ATTEND Internal Medicine
PROC: 5A1D70Z Performance of Urinary Filtration, Intermittent, Less than 6 Hours Per Day (ICD-10-PCS; principal; 2022-10-17)
PROC: 02HV33Z Insertion of Infusion Device into Superior Vena Cava, Percutaneous Approach (ICD-10-PCS; 2022-10-19)
PROC: B518ZZA Fluoroscopy of Superior Vena Cava, Guidance (ICD-10-PCS; 2022-10-19)
PROC: 02HV33Z Insertion of Infusion Device into Superior Vena Cava, Percutaneous Approach (ICD-10-PCS; 2022-10-19)
PROC: B518ZZA Fluoroscopy of Superior Vena Cava, Guidance (ICD-10-PCS; 2022-10-19)
DX: A41.51 Sepsis due to Escherichia coli [E. coli] (principal); I21.A1 Myocardial infarction type 2; I50.23 Acute on chronic systolic (congestive) heart failure; J96.00 Acute respiratory failure, unspecified whether with hypoxia or hypercapnia; N17.9 Acute kidney failure, unspecified; E87.20 Acidosis, unspecified; I13.2 Hypertensive heart and chronic kidney disease with heart failure and with stage 5 chronic kidney disease, or end stage renal disease; N18.5 Chronic kidney disease, stage 5; Z68.42 Body mass index [BMI] 45.0-49.9, adult; E11.22 Type 2 diabetes mellitus with diabetic chronic kidney disease; E66.01 Morbid (severe) obesity due to excess calories; E78.5 Hyperlipidemia, unspecified; L40.50 Arthropathic psoriasis, unspecified; Z96.659 Presence of unspecified artificial knee joint
CPT/HCPCS: 36415; 36556; 36558; 71045; 74470; 76770; 76942; 77001; 80048; 80053; 80061; 82550; 82553; 82570; 83036; 83605; 83690; 83735; 83880; 84100; 84156; 84484; 84550; 85025; 85379; 85610; 86704; 86706; 86707; 87040; 87071; 87086; 87186; 87205; 93005; 94640; 94799; 96360; 99152; 99285; C1769; C1892; J0696; J1644; J1940; J2001; J2250; J2270; J2405; J2543; J7030; J7050; P9047